=== PATIENT | female | born 1945 | race Caucasian/White ===

== ENCOUNTER 2021-02-05 12:06 | Day surgery (SDC) | payer MEDICARE, OTHER ==
[~2021-02-05] VITALS: Ht 170.2 cm; Wt 58.3 kg
[~2021-02-05 12:06] MED LIST: ASCO1ER; ASPI325; B Complex1 EAC2; CALC1.25T; CELE100 PO; CELEBREX; ESTR1; FISH1000; FOLI1; HYDACE5; MEDR5 PO; MELO7.5 PO; METTREX2.5 PO; MSM1000; MULVITSO; Norco 5-325 Ta1 EACH PO; OXYACE5T PO; PRED20 PO; SERT50 PO; SIMV10 PO; TEMA15 PO; TOLT4 PO; TRAM50 PO; VITAMIN D32000 UNI1 PO
== END 2021-02-05 14:18 | disposition home or self-care (01) ==
LOC: ORSCSDS 12:06
PROVIDERS: Surgery
PROC: 0DBM8ZX Excision of Descending Colon, Via Natural or Artificial Opening Endoscopic, Diagnostic (ICD-10-PCS; principal; 2021-02-05 13:00)
DX: Z12.11 Encounter for screening for malignant neoplasm of colon (principal); Z86.010 Personal history of colon polyps; D21.4 Benign neoplasm of connective and other soft tissue of abdomen; F17.210 Nicotine dependence, cigarettes, uncomplicated; Z79.899 Other long term (current) drug therapy
CPT/HCPCS: 88305; J2704; J7120

== ENCOUNTER 2021-03-17 09:59 | Emergency (ER) | payer MEDICARE, OTHER ==
[~2021-03-17] VITALS: Ht 170.2 cm; Wt 63.5 kg
[~2021-03-17 09:59] MED LIST changes: -ASCO1ER; +ASCO500 PO; -B Complex1 EAC2; -CALC1.25T; +FISH OIL 1,2001 EAC7 PO; -FISH1000; +OYSTER SHELL C500 MG PO; +Vitamin B Comple1 EA PO
[2021-03-17 11:02] LABS: BASOPHILS ABSOLUTE AUTO 0.06 K/mm3 (0.00-0.23); BASOPHILS PERCENT AUTO 1 % (0-2); EOSINOPHILS ABSOLUTE AUTO 0.22 K/mm3 (0.00-0.68); EOSINOPHILS PERCENT AUTO 2 % (0-6); Hematocrit 40.1 % (33.0-51.0); Hemoglobin 13.9 g/dL (11.5-16.0); IMMATURE GRAN ABSOLUTE AUTO 0.04 K/mm3 (0.00-0.10); IMMATURE GRAN PERCENT AUTO 0 % (0-1); LYMPHOCYTES PERCENT AUTO 25 % (21-46); MONOCYTES ABSOLUTE AUTO 0.74 K/mm3 (0.16-1.47); MONOCYTES PERCENT AUTO 7 % (4-13); Mean Corpuscular HGB Conc 34.7 g/dL (31.5-36.5); Mean Corpuscular Volume 86 fL (80-100); Mean Platelet Volume 9.6 fL (9.1-12.4); NEUTROPHILS ABSOLUTE AUTO 6.47 K/mm3 (1.96-9.15); NEUTROPHILS PERCENT AUTO 65 % (41-73); Platelet Count 363 K/mm3 (150-400); RDW Coefficient Variation 13.3 % (11.7-14.2); RDW Standard Deviation 41.6 fL (35.1-46.3); Red Blood Cell Count 4.64 M/mm3 (3.80-5.20); White Blood Cell Count 10.03 K/mm3 (4.00-11.30)
[2021-03-17 11:14] LABS: Alanine Aminotransfer (ALT/SGP 16 U/L (12-78); Albumin, Blood 3.3 g/dL (3.4-5.0); Albumin/Globulin Ratio 0.8 (0.8-1.8); Alk Phos 99 U/L (50-136); Anion Gap 5 mmol/L (6-16); Aspartate Aminotrans (AST/SGOT 12 U/L (12-37); Bilirubin, Total 0.4 mg/dL (0.1-1.0); Blood Urea Nitrogen 18 mg/dL (8-24); CO2, Blood 24 mmol/L (21-32); Calcium, Blood 9.1 mg/dL (8.5-10.1); Chloride, Blood 108 mmol/L (98-108); Creatinine, Blood 0.55 mg/dL (0.40-1.00); Globulin, Blood 4.1 g/dL (2.2-4.0); Glomerular Filtration Rate >60 (60-); Glucose, Blood 91 mg/dL (70-99); Potassium, Blood 3.8 mmol/L (3.5-5.5); Sodium, Blood 137 mmol/L (136-145); Total Protein, Blood 7.4 g/dL (6.4-8.2); Troponin I <0.015 ng/mL (0.000-0.040)
== END 2021-03-17 15:54 | disposition home or self-care (01) ==
LOC: ER 09:59
PROVIDERS: Emergency Medicine
DX: R07.9 Chest pain, unspecified (principal); F17.200 Nicotine dependence, unspecified, uncomplicated; Z88.2 Allergy status to sulfonamides; Z91.09 Other allergy status, other than to drugs and biological substances; Z79.899 Other long term (current) drug therapy
CPT/HCPCS: 36415; 71045; 80053; 84484; 85025; 93005; 93010; 99285-25; A9270; J7050

== ENCOUNTER → 2022-02-24 | Outpatient (CLI) | payer MEDICARE, OTHER | END | disposition home or self-care (01) | LOC: LAB SHORT 11:45 | DX: L08.9 Local infection of the skin and subcutaneous tissue, unspecified (principal); D48.5 Neoplasm of uncertain behavior of skin; S80.222A Blister (nonthermal), left knee, initial encounter; Z79.899 Other long term (current) drug therapy | CPT/HCPCS: 87070; 87205 ==

== ENCOUNTER → 2022-04-16 | Outpatient (CLI) | payer MEDICARE, OTHER ==
[2022-04-22 09:11] LABS: HPV 16 Negative (Negative); HPV 18 Negative (Negative); HPV OTHER HR TYPES Negative (Negative)
== END ==
LOC: LAB 16:30 → LAB SHORT 16:30
PROVIDERS: Family Medicine
DX: Z01.419 Encounter for gynecological examination (general) (routine) without abnormal findings (principal)
CPT/HCPCS: 87624; G0145

== ENCOUNTER 2024-06-08 03:40 | Day surgery (SDC) | payer MEDICARE, OTHER ==
[~2024-06-08 03:40] MED LIST changes: +Acetaminophen650 M1 PO; +CEFTRIAXONE2 G1 IV; +CELE200; +CELEBREX200 MG PO; +CUBICIN RF500 M1 IV; +CefTRIAXone Sodium 2,000 MG in NS 100 ML IV SCH; +LACT PO; +METR500 PO; +OXAYDO5 M1 PO; +PERIDEX15 ML MM; +PRESERVISION; +SENN187 PO; +TOCO1000 PO; +VIT D3-VIT K21 EACH PO; +ZINC50 M3 PO; +ZOLP5 PO; +[UNRECOGNIZED DRUG - OTHER] PO
[2024-06-08] MEDS ORDERED: DAPTOmycin 350 MG in NS 50 ML IV SCH (06:00)
[2024-06-08 13:47] VITALS: BP 111/62
[2024-06-08 14:41] LABS: BASOPHILS ABSOLUTE AUTO 0.11 K/mm3 (0.00-0.23); BASOPHILS PERCENT AUTO 1 % (0-2); EOSINOPHILS PERCENT AUTO 7 % (0-6); Hematocrit 36.1 % (33.0-51.0); Hemoglobin 12.4 g/dL (11.5-16.0); IMMATURE GRAN ABSOLUTE AUTO 0.08 K/mm3 (0.00-0.10); IMMATURE GRAN PERCENT AUTO 1 % (0-1); LYMPHOCYTES ABSOLUTE AUTO 1.58 K/mm3 (0.84-5.20); LYMPHOCYTES PERCENT AUTO 17 % (21-46); MONOCYTES ABSOLUTE AUTO 0.62 K/mm3 (0.16-1.47); MONOCYTES PERCENT AUTO 7 % (4-13); Mean Corpuscular HGB 30.7 pg (26.0-34.0); Mean Corpuscular HGB Conc 34.3 g/dL (31.5-36.5); Mean Corpuscular Volume 89 fL (80-100); Mean Platelet Volume 9.8 fL (9.1-12.4); NEUTROPHILS ABSOLUTE AUTO 6.38 K/mm3 (1.96-9.15); NEUTROPHILS PERCENT AUTO 67 % (41-73); Platelet Count 332 K/mm3 (150-400); RDW Coefficient Variation 14.9 % (11.7-14.2); RDW Standard Deviation 47.8 fL (35.1-46.3); Red Blood Cell Count 4.04 M/mm3 (3.80-5.20); White Blood Cell Count 9.47 K/mm3 (4.00-11.30)
[2024-06-08 15:02] LABS: Albumin, Blood 3.2 g/dL (3.4-5.0); Albumin/Globulin Ratio 0.8 (0.8-1.8); Bilirubin, Total 0.5 mg/dL (0.1-1.0); C-REACTIVE PROTEIN, EXT RANGE 0.838 mg/dL (0.000-0.300); Calcium, Blood 8.7 mg/dL (8.5-10.1); Creatinine, Blood 0.52 mg/dL (0.40-1.00); Potassium, Blood 3.7 mmol/L (3.5-5.5); Total Protein, Blood 7.2 g/dL (6.4-8.2)
== END 2024-06-08 14:09 | disposition home or self-care (01) ==
LOC: ATC 03:40
PROVIDERS: Internal Medicine Infectious Disease
DX: M86.18 Other acute osteomyelitis, other site (principal); Z72.0 Tobacco use; Z98.890 Other specified postprocedural states
CPT/HCPCS: 80053; 82550; 85025; 86140; 96365; 96368; J0696; J0878

== ENCOUNTER 2024-06-09 02:45 | Day surgery (SDC) | payer MEDICARE, OTHER ==
[~2024-06-09 02:45] MED LIST changes: -CefTRIAXone Sodium 2,000 MG in NS 100 ML IV SCH
[2024-06-09] MEDS ORDERED: CefTRIAXone Sodium 2,000 MG in NS 100 ML IV SCH (06:00)
[2024-06-09] MEDS ORDERED: DAPTOmycin 350 MG in NS 50 ML IV SCH (07:50)
[2024-06-09 10:45] VITALS: BP 125/70
== END 2024-06-09 10:52 | disposition home or self-care (01) ==
LOC: ATC 02:45
DX: M86.18 Other acute osteomyelitis, other site (principal)
CPT/HCPCS: 96365; 96368; J0696; J0878

== ENCOUNTER 2024-06-10 10:26 | Day surgery (SDC) | payer MEDICARE, OTHER ==
[~2024-06-10 10:26] MED LIST changes: +CefTRIAXone Sodium 2,000 MG in NS 100 ML IV SCH; +DAPTOmycin 350 MG in NS 50 ML IV SCH
[2024-06-10 10:40] VITALS: BP 101/77
== END 2024-06-10 11:02 | disposition home or self-care (01) ==
LOC: ATC 10:26
DX: M86.18 Other acute osteomyelitis, other site (principal)
CPT/HCPCS: 96365; 96368; J0696; J0878

== ENCOUNTER 2024-06-11 03:08 | Day surgery (SDC) | payer MEDICARE, OTHER ==
[~2024-06-11 03:08] MED LIST changes: -CefTRIAXone Sodium 2,000 MG in NS 100 ML IV SCH; -DAPTOmycin 350 MG in NS 50 ML IV SCH
[2024-06-11] MEDS ORDERED: CefTRIAXone Sodium 2,000 MG in NS 100 ML IV SCH (06:55)
[2024-06-11] MEDS ORDERED: DAPTOmycin 350 MG in NS 50 ML IV SCH (06:55)
[2024-06-11 13:36] VITALS: BP 92/61
== END 2024-06-11 14:05 | disposition home or self-care (01) ==
LOC: ATC 03:08
DX: M86.18 Other acute osteomyelitis, other site (principal)
CPT/HCPCS: 96365; 96368; J0696; J0878

== ENCOUNTER 2024-06-12 03:33 | Day surgery (SDC) | payer MEDICARE, OTHER ==
[2024-06-12] MEDS ORDERED: CefTRIAXone Sodium 2,000 MG in NS 100 ML IV SCH (06:00)
[2024-06-12] MEDS ORDERED: DAPTOmycin 350 MG in NS 50 ML IV SCH (07:45)
[2024-06-12 10:21] VITALS: BP 131/72
== END 2024-06-12 10:48 | disposition home or self-care (01) ==
LOC: ATC 03:33
DX: M86.18 Other acute osteomyelitis, other site (principal)
CPT/HCPCS: 96365; 96368; J0696; J0878

== ENCOUNTER 2024-06-13 05:56 | Day surgery (SDC) | payer MEDICARE, OTHER ==
[2024-06-13] MEDS ORDERED: DAPTOmycin 350 MG in NS 50 ML IV SCH (06:00)
[2024-06-13] MEDS ORDERED: CefTRIAXone Sodium 2,000 MG in NS 100 ML IV SCH (06:00)
[2024-06-13 13:33] VITALS: BP 111/67
== END 2024-06-13 14:11 | disposition home or self-care (01) ==
LOC: ATC 05:56
DX: M86.18 Other acute osteomyelitis, other site (principal)
CPT/HCPCS: 96365; 96368; J0696; J0878

== ENCOUNTER 2024-06-14 02:41 | Day surgery (SDC) | payer MEDICARE, OTHER ==
[2024-06-14] MEDS ORDERED: CefTRIAXone Sodium 2,000 MG in NS 100 ML IV SCH (06:00)
[2024-06-14] MEDS ORDERED: DAPTOmycin 350 MG in NS 50 ML IV SCH (06:00)
[2024-06-14 13:37] VITALS: BP 107/72
== END 2024-06-14 13:57 | disposition home or self-care (01) ==
LOC: ATC 02:41
DX: M86.18 Other acute osteomyelitis, other site (principal); Z88.2 Allergy status to sulfonamides; Z79.899 Other long term (current) drug therapy
CPT/HCPCS: 96365; 96368; J0696; J0878

== ENCOUNTER 2024-06-15 03:16 | Day surgery (SDC) | payer MEDICARE, OTHER ==
[~2024-06-15 03:16] MED LIST changes: +CefTRIAXone Sodium 2,000 MG in NS 100 ML IV SCH
[2024-06-15] MEDS ORDERED: DAPTOmycin 350 MG in NS 50 ML IV SCH (06:00)
[2024-06-15 14:09] VITALS: BP 108/58
[2024-06-15 14:41] LABS: BASOPHILS PERCENT AUTO 1 % (0-2); EOSINOPHILS ABSOLUTE AUTO 0.71 K/mm3 (0.00-0.68); EOSINOPHILS PERCENT AUTO 10 % (0-6); Hematocrit 37.3 % (33.0-51.0); Hemoglobin 12.7 g/dL (11.5-16.0); IMMATURE GRAN ABSOLUTE AUTO 0.04 K/mm3 (0.00-0.10); IMMATURE GRAN PERCENT AUTO 1 % (0-1); LYMPHOCYTES ABSOLUTE AUTO 1.59 K/mm3 (0.84-5.20); LYMPHOCYTES PERCENT AUTO 23 % (21-46); MONOCYTES ABSOLUTE AUTO 0.56 K/mm3 (0.16-1.47); MONOCYTES PERCENT AUTO 8 % (4-13); Mean Corpuscular HGB 30.5 pg (26.0-34.0); Mean Corpuscular Volume 89 fL (80-100); Mean Platelet Volume 9.6 fL (9.1-12.4); NEUTROPHILS ABSOLUTE AUTO 3.91 K/mm3 (1.96-9.15); NEUTROPHILS PERCENT AUTO 57 % (41-73); Platelet Count 323 K/mm3 (150-400); RDW Standard Deviation 48.2 fL (35.1-46.3); Red Blood Cell Count 4.17 M/mm3 (3.80-5.20); White Blood Cell Count 6.91 K/mm3 (4.00-11.30)
[2024-06-15 14:59] LABS: Albumin, Blood 3.4 g/dL (3.4-5.0); Albumin/Globulin Ratio 0.9 (0.8-1.8); Bilirubin, Total 0.7 mg/dL (0.1-1.0); Bun/Creatinine Ratio 20.9 (12.0-20.0); C-REACTIVE PROTEIN, EXT RANGE 0.69 mg/dL (0.000-0.300); Calcium, Blood 9.4 mg/dL (8.5-10.1); Creatinine, Blood 0.48 mg/dL (0.40-1.00); Globulin, Blood 3.7 g/dL (2.2-4.0); Potassium, Blood 3.5 mmol/L (3.5-5.5); Total Protein, Blood 7.1 g/dL (6.4-8.2)
== END 2024-06-15 14:09 | disposition home or self-care (01) ==
LOC: ATC 03:16
PROVIDERS: Internal Medicine Infectious Disease
DX: M86.18 Other acute osteomyelitis, other site (principal)
CPT/HCPCS: 80053; 82550; 85025; 86140; 96365; 96368; J0696; J0878

== ENCOUNTER 2024-06-16 02:17 | Day surgery (SDC) | payer MEDICARE, OTHER ==
[2024-06-16] MEDS ORDERED: DAPTOmycin 350 MG in NS 50 ML IV SCH (06:00)
[2024-06-16 10:44] VITALS: BP 102/69
== END 2024-06-16 11:03 | disposition home or self-care (01) ==
LOC: ATC 02:17
DX: M86.18 Other acute osteomyelitis, other site (principal)
CPT/HCPCS: 96365; 96368; J0696; J0878

== ENCOUNTER 2024-06-17 10:31 | Day surgery (SDC) | payer MEDICARE, OTHER ==
[~2024-06-17 10:31] MED LIST changes: +DAPTOmycin 350 MG in NS 50 ML IV SCH
[2024-06-17 10:37] VITALS: BP 104/78
== END 2024-06-17 10:58 | disposition home or self-care (01) ==
LOC: ATC 10:31
DX: M86.18 Other acute osteomyelitis, other site (principal); Z72.0 Tobacco use
CPT/HCPCS: 96365; 96368; J0696; J0878

== ENCOUNTER 2024-06-18 00:39 | Day surgery (SDC) | payer MEDICARE, OTHER ==
[~2024-06-18 00:39] MED LIST changes: -CefTRIAXone Sodium 2,000 MG in NS 100 ML IV SCH; -DAPTOmycin 350 MG in NS 50 ML IV SCH
[2024-06-18] MEDS ORDERED: CefTRIAXone Sodium 2,000 MG in NS 100 ML IV SCH (06:00)
[2024-06-18] MEDS ORDERED: DAPTOmycin 350 MG in NS 50 ML IV SCH (10:55)
[2024-06-18 13:37] VITALS: BP 113/71
[2024-06-27] MEDS ORDERED: ELIQUIS5 M2 PO (11:41)
[2024-06-27] MEDS ORDERED: IPRAT-ALBUT 0.5-3 ML INH (11:42)
== END 2024-06-18 14:00 | disposition home or self-care (01) ==
LOC: ATC 00:39
DX: M86.18 Other acute osteomyelitis, other site (principal); Z72.0 Tobacco use; Z79.899 Other long term (current) drug therapy
CPT/HCPCS: 96365; 96375; J0696; J0878

== ENCOUNTER 2024-06-19 02:11 | Day surgery (SDC) | payer MEDICARE, OTHER ==
[2024-06-19] MEDS ORDERED: CefTRIAXone Sodium 2,000 MG in NS 100 ML IV SCH (06:00)
[2024-06-19] MEDS ORDERED: DAPTOmycin 350 MG in NS 50 ML IV SCH (06:00)
[2024-06-19 13:10] VITALS: BP 99/82
== END 2024-06-19 13:56 | disposition home or self-care (01) ==
LOC: ATC 02:11
DX: M86.18 Other acute osteomyelitis, other site (principal)
CPT/HCPCS: 96365; 96368; J0696; J0878

== ENCOUNTER 2024-06-20 00:37 | Day surgery (SDC) | payer MEDICARE, OTHER ==
[2024-06-20] MEDS ORDERED: CefTRIAXone Sodium 2,000 MG in NS 100 ML IV SCH (06:00)
[2024-06-20] MEDS ORDERED: DAPTOmycin 350 MG in NS 50 ML IV SCH (06:00)
[2024-06-20 13:20] VITALS: BP 118/68
[2024-06-27] MEDS ORDERED: ELIQUIS5 M2 PO (11:41)
[2024-06-27] MEDS ORDERED: IPRAT-ALBUT 0.5-3 ML INH (11:42)
== END 2024-06-20 13:45 | disposition home or self-care (01) ==
LOC: ATC 00:37
DX: M86.18 Other acute osteomyelitis, other site (principal)
CPT/HCPCS: 96365; 96368; J0696; J0878

== ENCOUNTER 2024-06-21 02:10 | Day surgery (SDC) | payer MEDICARE, OTHER ==
[~2024-06-21 02:10] MED LIST changes: +CefTRIAXone Sodium 2,000 MG in NS 100 ML IV SCH
[2024-06-21] MEDS ORDERED: DAPTOmycin 350 MG in NS 50 ML IV SCH (06:00)
[2024-06-21 13:36] VITALS: BP 102/63
[2024-06-27] MEDS ORDERED: ELIQUIS5 M2 PO (11:41)
[2024-06-27] MEDS ORDERED: IPRAT-ALBUT 0.5-3 ML INH (11:42)
== END 2024-06-21 14:13 | disposition home or self-care (01) ==
LOC: ATC 02:10
DX: M86.18 Other acute osteomyelitis, other site (principal); Z98.890 Other specified postprocedural states
CPT/HCPCS: 80053; 82550; 85025; 86140; 96365; 96368; J0696; J0878

== ENCOUNTER 2024-06-22 01:18 | Day surgery (SDC) | payer MEDICARE, OTHER ==
[~2024-06-22 01:18] MED LIST changes: -CefTRIAXone Sodium 2,000 MG in NS 100 ML IV SCH
[2024-06-22] MEDS ORDERED: CefTRIAXone Sodium 2,000 MG in NS 100 ML IV SCH (06:00)
[2024-06-22] MEDS ORDERED: DAPTOmycin 350 MG in NS 50 ML IV SCH (06:00)
[2024-06-22 13:39] VITALS: BP 110/70
[2024-06-22 14:44] LABS: BASOPHILS ABSOLUTE AUTO 0.04 K/mm3 (0.00-0.23); BASOPHILS PERCENT AUTO 1 % (0-2); EOSINOPHILS PERCENT AUTO 10 % (0-6); Hematocrit 34.3 % (33.0-51.0); IMMATURE GRAN ABSOLUTE AUTO 0.03 K/mm3 (0.00-0.10); IMMATURE GRAN PERCENT AUTO 0 % (0-1); LYMPHOCYTES PERCENT AUTO 16 % (21-46); MONOCYTES ABSOLUTE AUTO 0.95 K/mm3 (0.16-1.47); MONOCYTES PERCENT AUTO 12 % (4-13); Mean Corpuscular HGB 30.5 pg (26.0-34.0); Mean Corpuscular Volume 87 fL (80-100); Mean Platelet Volume 10.2 fL (9.1-12.4); NEUTROPHILS ABSOLUTE AUTO 5.02 K/mm3 (1.96-9.15); NEUTROPHILS PERCENT AUTO 62 % (41-73); Platelet Count 276 K/mm3 (150-400); RDW Coefficient Variation 14.2 % (11.7-14.2); RDW Standard Deviation 45.1 fL (35.1-46.3); Red Blood Cell Count 3.94 M/mm3 (3.80-5.20); White Blood Cell Count 8.14 K/mm3 (4.00-11.30)
[2024-06-22 14:56] LABS: C-REACTIVE PROTEIN, EXT RANGE 7.36 mg/dL (0.000-0.300)
[2024-06-22 15:03] LABS: Albumin, Blood 2.9 g/dL (3.4-5.0); Albumin/Globulin Ratio 0.8 (0.8-1.8); Bilirubin, Total 0.5 mg/dL (0.1-1.0); Calcium, Blood 8.7 mg/dL (8.5-10.1); Creatinine, Blood 0.46 mg/dL (0.40-1.00); Globulin, Blood 3.7 g/dL (2.2-4.0); Potassium, Blood 3.7 mmol/L (3.5-5.5); Total Protein, Blood 6.6 g/dL (6.4-8.2)
--- NOTE | 2024-06-22 15:57 | NUR ---
Results from labs today faxed to Dr. Lu's office.
[2024-06-27] MEDS ORDERED: ELIQUIS5 M2 PO (11:41)
[2024-06-27] MEDS ORDERED: IPRAT-ALBUT 0.5-3 ML INH (11:42)
== END 2024-06-22 14:08 | disposition home or self-care (01) ==
LOC: ATC 01:18
PROVIDERS: Internal Medicine Infectious Disease
DX: M86.18 Other acute osteomyelitis, other site (principal)
CPT/HCPCS: 80053; 82550; 85025; 86140; 96365; 96368; J0696; J0878

== ENCOUNTER 2024-06-23 02:09 | Day surgery (SDC) | payer MEDICARE, OTHER ==
[2024-06-23] MEDS ORDERED: CefTRIAXone Sodium 2,000 MG in NS 100 ML IV SCH (06:00)
[2024-06-23] MEDS ORDERED: DAPTOmycin 350 MG in NS 50 ML IV SCH (06:00)
[2024-06-23 13:27] VITALS: BP 102/66
[2024-06-27] MEDS ORDERED: ELIQUIS5 M2 PO (11:41)
[2024-06-27] MEDS ORDERED: IPRAT-ALBUT 0.5-3 ML INH (11:42)
== END 2024-06-23 13:55 | disposition home or self-care (01) ==
LOC: ATC 02:09
DX: M86.18 Other acute osteomyelitis, other site (principal); Z88.2 Allergy status to sulfonamides; Z88.1 Allergy status to other antibiotic agents; Z79.899 Other long term (current) drug therapy
CPT/HCPCS: 96365; 96368; J0696; J0878

== ENCOUNTER 2024-06-24 13:37 | Day surgery (SDC) | payer MEDICARE, OTHER ==
[~2024-06-24 13:37] MED LIST changes: +CefTRIAXone Sodium 2,000 MG in NS 100 ML IV SCH; +DAPTOmycin 350 MG in NS 50 ML IV SCH
[2024-06-24 13:50] VITALS: BP 112/55
--- NOTE | 2024-06-24 14:34 | NUR ---
PT ARRIVED FOR DAILY INFUSION IN INFUSION CLINIC WITH FRIEND PUSHING IN W/C. LATE 20 MIN, PTS FRIEND STATES THAT SHE IS SO WEAK COULD HARDLY GET HER IN CAR. PT SHIVERING, TEETH CHATTERING, STATING "I AM FREEZING AND HURT ALL OVER" VITALS TAKEN 101.9 TEMP, PT BIOX ON ROOM AIR SITTING AT 88-89%, PT HAS COUGH, 2 LITERS OXYGEN APPLIED. PT STATES THIS STARTED EARLY THIS MORNING, THIS PT HAS BEEN COMING INTO CLINIC SINCE 06/01 AND THIS IS NOT HER NORMAL. REPORTED OFF TO CHARGE NURSE AND ASSISTED PT TO ER, ON 2 LITERS OXYGEN VIA WHEEL CHAIR
== END 2024-06-24 14:15 | disposition home or self-care (01) ==
LOC: ATC 13:37
DX: M86.18 Other acute osteomyelitis, other site (principal); Z79.899 Other long term (current) drug therapy
CPT/HCPCS: J0696; J0878

== ENCOUNTER 2024-07-05 01:07 | Day surgery (SDC) | payer MEDICARE, OTHER ==
[~2024-07-05 01:07] MED LIST changes: -DAPTOmycin 350 MG in NS 50 ML IV SCH; +ELIQUIS5 M2 PO; +IPRAT-ALBUT 0.5-3 ML INH; +LINE600 PO
[2024-07-05 13:45] VITALS: BP 117/78
== END 2024-07-05 14:08 | disposition home or self-care (01) ==
LOC: ATC 01:07
DX: M86.18 Other acute osteomyelitis, other site (principal); F17.200 Nicotine dependence, unspecified, uncomplicated; Z79.899 Other long term (current) drug therapy
CPT/HCPCS: 96365; J0696

== ENCOUNTER 2024-07-08 10:26 | Day surgery (SDC) | payer MEDICARE, OTHER ==
[2024-07-08 10:32] VITALS: BP 110/58
== END 2024-07-08 10:56 | disposition home or self-care (01) ==
LOC: ATC 10:26
DX: M86.18 Other acute osteomyelitis, other site (principal); Z79.899 Other long term (current) drug therapy
CPT/HCPCS: 96365; J0696

== ENCOUNTER 2024-07-09 03:08 | Day surgery (SDC) | payer MEDICARE, OTHER ==
[~2024-07-09 03:08] MED LIST changes: -CefTRIAXone Sodium 2,000 MG in NS 100 ML IV SCH
[2024-07-09] MEDS ORDERED: CefTRIAXone Sodium 2,000 MG in NS 100 ML IV SCH (06:00)
[2024-07-09 13:40] VITALS: BP 120/63
== END 2024-07-09 13:58 | disposition home or self-care (01) ==
LOC: ATC 03:08
DX: M86.18 Other acute osteomyelitis, other site (principal); Z72.0 Tobacco use
CPT/HCPCS: 96365; J0696

== ENCOUNTER 2024-07-10 03:06 | Day surgery (SDC) | payer MEDICARE, OTHER ==
[~2024-07-10 03:06] MED LIST changes: +CefTRIAXone Sodium 2,000 MG in NS 100 ML IV SCH
[2024-07-10 13:46] VITALS: BP 131/53
--- NOTE | 2024-07-11 16:16 | NUR ---
LATE ENTRY FOR 07/10/24 AT 1405 [id number] COMPLETE AND STOPPED, UNABLE TO DOCUMENT ON THE EMAR
== END 2024-07-10 16:37 | disposition home or self-care (01) ==
LOC: ATC 03:06
DX: M86.18 Other acute osteomyelitis, other site (principal)
CPT/HCPCS: 96365; 99211; J0696

== ENCOUNTER 2024-11-22 08:41 | Day surgery (SDC) | payer MEDICARE ==
[~2024-11-22] VITALS: Ht 170.2 cm; Wt 54.2 kg
[~2024-11-22 08:41] MED LIST changes: +Acetaminophen 500 MG Tab ONE; +CeFAZolin Sodium 2,000 MG VIAL ONE; -CefTRIAXone Sodium 2,000 MG in NS 100 ML IV SCH; +Tranexamic Acid 100 ML IV ONE
[2024-11-22] MEDS ORDERED: Midazolam HCl 1MG / ML 2ML Vial ONE (09:04)
[2024-11-22] MEDS ORDERED: EPINEPhrine HCl 1 MG/ML 1ML Amp ONE (09:05)
[2024-11-22] MEDS ORDERED: Bupivacaine 0.5% HCl 5 MG/ML 30MLVIAL ONE (09:05)
[2024-11-22] MEDS ORDERED: TRAM50 PO (09:11)
[2024-11-22] MEDS ORDERED: IBUP600 (09:12)
[2024-11-22] MEDS ORDERED: HYDROcodone 10-APAP 325 TAB ONE (09:20)
[2024-11-22] MEDS ORDERED: Lactated Ringer's 1,000 ML IV ONE (09:43)
[2024-11-22] MEDS ORDERED: Etomidate 2MG / ML 10ML Vial ONE (09:57)
[2024-11-22] MEDS ORDERED: FentaNYL Citrate 50 MCG/ML 2 ML Injection ONE (09:57)
--- NOTE | 2024-11-22 09:59 | NUR ---
11/22/24 0959 MEGAN MCCAULEY T/O 0950 PULSE OX ON MONITORING O2 99% 3L O2 START 950 END 954 BLOCK
[2024-11-22] MEDS ORDERED: Phenylephrine HCl 100 MCG/ML-NS 10MLSYR (1MG/10ML) ONE (10:15)
[2024-11-22] MEDS ORDERED: Phenylephrine HCl 10mg/ml 1 ml Vial ONE (10:17)
[2024-11-22] MEDS ORDERED: Ketorolac Tromethamine 30mg Vial ONE (11:09)
[2024-11-22] MEDS ORDERED: Sugammadex Sodium 200 MG/2ML SDV (100 MG/ML) ONE (11:09)
[2024-11-22] MEDS ORDERED: Ondansetron HCl 2 MG / ML 2ML Vial ONE (11:09)
[2024-11-22] MEDS ORDERED: Dexamethasone Sod Phos 10 MG/ML 1ML VIAL ONE (11:09)
[2024-11-22] MEDS ORDERED: Ipratropium/Albuterol SulF 2.5-0.5MG/3 ML Amp ONE (11:42)
--- NOTE | 2024-11-22 11:58 | NUR ---
11/22/24 [id number] Rachell Dickerson PATIENT HAS WET COUGH UPON ARRIVAL TO PACU. ORAL SUCTIONING PROVIDED. DUONEB ORDERED BY [facility]. PATIENT AROUSABLE TO VOICE.
[2024-11-22] MEDS ORDERED: Tranexamic Acid 100 ML IV ONE (12:54)
--- NOTE | 2024-11-22 13:04 | NUR ---
11/22/24 1304 Rachell Dickerson RECEIVED REPORT FROM NOLAN ZULUAGA. PER REPORT, POST OP XRAY WAS COMPLETED. 2ND DOSE OF TXA ADMINISTERED. PATIENT SITTING IN RECLINER, POLAR PACK APPLIED, DRINKING PO FLUIDS, TOLERATING WELL. AT BEDSIDE. DENIES PAIN AND NAUSEA AT THIS TIME.
[2024-11-22 13:05] VITALS: BP 103/61
== END 2024-11-22 14:10 | disposition home or self-care (01) ==
LOC: ORSCSDS 08:41
PROVIDERS: Orthopaedic Surgery
PROC: 0RRK00Z Replacement of Left Shoulder Joint with Reverse Ball and Socket Synthetic Substitute, Open Approach (ICD-10-PCS; principal; 2024-11-22 10:00)
DX: M19.012 Primary osteoarthritis, left shoulder (principal); F17.210 Nicotine dependence, cigarettes, uncomplicated; G47.33 Obstructive sleep apnea (adult) (pediatric); J44.9 Chronic obstructive pulmonary disease, unspecified; Z79.899 Other long term (current) drug therapy
CPT/HCPCS: 73030; A9270; C1713; C1776; J0171; J0690; J1100; J1885; J2250; J2371; J2405; J3010

== ENCOUNTER 2024-11-25 08:53 | Emergency (ER) | payer MEDICARE ==
[~2024-11-25] VITALS: Ht 170.2 cm; Wt 56.2 kg
[~2024-11-25 08:53] MED LIST changes: -Acetaminophen 500 MG Tab ONE; -CeFAZolin Sodium 2,000 MG VIAL ONE; +IBUP600; -Tranexamic Acid 100 ML IV ONE
[2024-11-25] MEDS ORDERED: HYDROCODONE-AC1 EAC7 PO (09:11)
[2024-11-25] MEDS ORDERED: CEPH500 PO (09:11)
[2024-11-25 09:14] LABS: BASOPHILS ABSOLUTE AUTO 0.06 K/mm3 (0.00-0.23); BASOPHILS PERCENT AUTO 1 % (0-2); EOSINOPHILS ABSOLUTE AUTO 0.16 K/mm3 (0.00-0.68); EOSINOPHILS PERCENT AUTO 2 % (0-6); Hematocrit 31.6 % (33.0-51.0); IMMATURE GRAN ABSOLUTE AUTO 0.11 K/mm3 (0.00-0.10); IMMATURE GRAN PERCENT AUTO 1 % (0-1); LYMPHOCYTES ABSOLUTE AUTO 2.22 K/mm3 (0.84-5.20); LYMPHOCYTES PERCENT AUTO 24 % (21-46); MONOCYTES ABSOLUTE AUTO 0.79 K/mm3 (0.16-1.47); MONOCYTES PERCENT AUTO 8 % (4-13); Mean Corpuscular HGB 30.4 pg (26.0-34.0); Mean Corpuscular HGB Conc 34.8 g/dL (31.5-36.5); Mean Corpuscular Volume 87 fL (80-100); Mean Platelet Volume 8.8 fL (9.1-12.4); NEUTROPHILS ABSOLUTE AUTO 6.09 K/mm3 (1.96-9.15); NEUTROPHILS PERCENT AUTO 65 % (41-73); Platelet Count 242 K/mm3 (150-400); RDW Coefficient Variation 13.8 % (11.7-14.2); Red Blood Cell Count 3.62 M/mm3 (3.80-5.20); White Blood Cell Count 9.43 K/mm3 (4.00-11.30)
[2024-11-25 09:39] LABS: Albumin, Blood 3.1 g/dL (3.4-5.0); Albumin/Globulin Ratio 0.9 (0.8-1.8); Bilirubin, Total 0.6 mg/dL (0.1-1.0); Bun/Creatinine Ratio 24.8 (12.0-20.0); Calcium, Blood 9.2 mg/dL (8.5-10.1); Creatinine, Blood 0.57 mg/dL (0.40-1.00); Globulin, Blood 3.3 g/dL (2.2-4.0); Potassium, Blood 3.5 mmol/L (3.5-5.5); Total Protein, Blood 6.4 g/dL (6.4-8.2)
[2024-11-25] MEDS ORDERED: HYDROcodone 10-APAP 325 TAB PO ONE (10:55)
[2024-11-25 12:00] VITALS: BP 103/59
[2024-11-25] MEDS ORDERED: NYSTATIN100000 U13 PO (12:11)
[2024-11-25] MEDS ORDERED: Diflucan150 MG PO (12:11)
== END 2024-11-25 12:27 | disposition home or self-care (01) ==
LOC: ER 08:53
PROVIDERS: Student in an Organized Health Care Education/Training Program
DX: R07.9 Chest pain, unspecified (principal); B37.0 Candidal stomatitis; B37.31 Acute candidiasis of vulva and vagina; J44.9 Chronic obstructive pulmonary disease, unspecified; G47.33 Obstructive sleep apnea (adult) (pediatric); F17.200 Nicotine dependence, unspecified, uncomplicated; Z79.899 Other long term (current) drug therapy; Z88.1 Allergy status to other antibiotic agents; Z88.2 Allergy status to sulfonamides; Z91.048 Other nonmedicinal substance allergy status; Z88.5 Allergy status to narcotic agent
CPT/HCPCS: 71045; 71260; 80053; 84484; 85025; 93005; 93010; 99285-25; A9270; Q9967

== ENCOUNTER 2025-09-05 19:05 | Emergency (ER) | payer MEDICARE | END 2025-09-05 22:32 | disposition home or self-care (01) | LOC: ER 19:05 | DX: I95.9 Hypotension, unspecified (principal); R55 Syncope and collapse; Z88.2 Allergy status to sulfonamides; Z88.8 Allergy status to other drugs, medicaments and biological substances; J44.9 Chronic obstructive pulmonary disease, unspecified; F17.200 Nicotine dependence, unspecified, uncomplicated ==